=== PATIENT | female | born 1995 ===

== ENCOUNTER 2020-06-04 18:07 | Emergency (ER) | payer SELFPAY ==
[2020-06-05 12:44] LABS: SARS-CoV-2 MS2 Positive; SARS-CoV-2 N Gene Negative; SARS-CoV-2 S Gene Negative; SARS-CoV-2 by NAA Not Detected (NotDetected); SARS-CoV-2 orf1ab Negative
== END 2020-06-04 18:45 | disposition home or self-care (01) ==
LOC: ERS 18:07
DX: Z20.828 Contact with and (suspected) exposure to other viral communicable diseases (principal); D64.9 Anemia, unspecified
CPT/HCPCS: 87635; 99283; U0003